=== PATIENT | male | born 1940 | race Caucasian/White ===

== ENCOUNTER → 2016-03-23 11:53 | Outpatient (CLI) | payer MEDICARE, OTHER ==
[2016-03-04 16:08] VITALS: BMI 22.5
[~2016-03-23 11:53] MED LIST: ACETAMINOPHEN500 M1; ARAVA10 MG PO; ARICEPT5 MG PO; BAYER CHEWABLE81 MG PO; BUMETANIDE0.5 MG PO; FOLIC ACID1 MG PO; METHOTREXATE2.5 MG PO; MOBIC7.5 MG PO; NEXIUM20 MG PO; NORMODYNE / TR200 MG PO; PHENERGAN25 M1 PO; POTASSIUM99 M1 PO; SEROQUEL25 MG PO; SEROQUEL50 MG; TEKTURNA300 MG PO; VALIUM5 MG PO; ZANTAC150 MG PO
== END | disposition home or self-care (01) ==
LOC: D.RAD 11:53
DX: R13.10 Dysphagia, unspecified (principal)